=== PATIENT | male | born 1995 | race Hispanic/Latino ===

== ENCOUNTER 2019-11-09 10:25 | Observation (INO) | payer OTHER ==
[~2019-11-09] VITALS: Ht 177.8 cm; Wt 95.3 kg
--- NOTE | 2019-11-09 10:25 | NUR ---
PATIENT TO ROOM 16 BY EMS PATIENT HAD SUDDEN ONSET OF DIZZINESS AND LEFT SIDED BLINDNESS. WHEN PATIENT ARRIVED IN ER PATIENT HAD GROSS MOTOR TOTAL BODY INTERMITTENT TWITCHING. PATIENT CONFUSED STSTING TODAY WAS TUESDAY AFTER REDIRECTION AND ASKING 3 DIFFERENT TIMES. PATIENT UNABLE TO FOLLOW COMMANDS CORRECTLY. 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 PATIENT HAS NO ATAXIA BUT IS SLOW TO FOLLOW COMMANDS. MD NOTIFIED OF PATIENTS CONDITION AND STROKE ALERT CALLED. PATIENT TAKEN TO RADIOLOGY FOR CT SCAN
--- NOTE | 2019-11-09 10:49 | NUR ---
PATIENT ON CAMERA WITH DR GARCIA ALL SYMPTOMS FROM PREVIOUS NOTE RESOLVED EXCEPT FOR GROSS MOTOR MUSCLE TWITCHING. NO TPS RECOMMENDED BECAUSE OF RAPID IMPROVEMENT OF SYMPTOMS. MD NOTIFIED OF FINDINGS AND NEUROLOGIST EXAM
[2019-11-09 10:54] LABS: GFR > 60 ML/MIN (>=60 (CALC)); GFR FOR AFR.AMER. > 60 ML/MIN (>=60 (CALC))
[2019-11-09 10:56] LABS: HEMATOCRIT 44.8 % (39.0-50.0); HEMOGLOBIN 15.4 g/dl (14.0-18.0); IMMATURE GRANULOCYTES 0.3 % (0.0-5.0); MEAN CELL VOLUME 87.2 fL CALC (80.0-100.0); MEAN CORPUSCULAR HGB CONC 34.4 g/dL CAL (32.0-36.0); NEUT# 4.05 thou/uL (1.82-7.42); RED BLOOD COUNT 5.14 mill/uL (4.70-6.10); RED CELL DISTRI WIDTH 11.5 % (11.5-15.5)
[2019-11-09 11:08] LABS: ALKALINE PHOSPHATASE 108 u/l (38-126); ANION GAP 17 (6-22 (CALC)); BILIRUBIN, TOTAL 0.9 mg/dL (0.0-1.4); BUN 15 mg/dL (9-20); BUN/CREATININE RATIO 14 (12-20 (CALC)); CARBON DIOXIDE 22 mmol/l (22-30); CHLORIDE 103 mmol/l (95-108); CREATININE 1.1 mg/dL (0.7-1.3); ETHYL ALCOHOL 0 mg/dl (0-30); GFR > 60 ML/MIN (>=60 (CALC)); GFR FOR AFR.AMER. > 60 ML/MIN (>=60 (CALC)); LIPASE 78 u/l (23-300); POTASSIUM 4.1 mmol/l (3.5-5.1); SGOT/AST 64 u/l (17-59); SODIUM 137 mmol/l (137-146); TOTAL PROTEIN 7.9 g/dL (6.3-8.2)
[2019-11-09 11:14] LABS: ACT PARTIAL THROMBO TIME 26.8 SECONDS (20.0-32.5); PROTHROMBIN TIME 9.9 SECONDS (9.0-12.5)
--- NOTE | 2019-11-09 11:49 | NUR ---
PATEINT RESTING AWAITING RADIOLOGY RESULTS PATIENT HAS NO NEURO DEFICITS AT THIS TIME
[2019-11-09 12:52] LABS: URINE BILIRUBIN - DIPSTICK NEGATIVE (NEGATIVE); URINE BLOOD DIPSTICK NEGATIVE (NEGATIVE); URINE COLOR YELLOW; URINE GLUCOSE - DIPSTICK NEGATIVE (NEGATIVE); URINE KETONE NEGATIVE (NEGATIVE); URINE LEUK ESTERASE NEGATIVE (NEGATIVE); URINE NITRITE - DIPSTICK NEGATIVE (Negative); URINE PH 6.5 (4.5-8.0); URINE PROTEIN - DIPSTICK NEGATIVE (NEG-TRACE); URINE SPECIFIC GRAVITY <=1.005; URINE UROBILINOGEN - DIPSTICK 0.2 E.U./dL (0.2)
[2019-11-09] MEDS ORDERED: VENTOLIN H108 MCG/AC IN (12:56)
--- NOTE | 2019-11-09 13:10 | NUR ---
NO O2 REQUIRED PER MD
--- NOTE | 2019-11-09 14:10 | NUR ---
PATIENT RESTING AWAITNG ROOM ASSIGNMENT PATIENT DENIES ANY PAIN OR DISCOMFORT AT THIS TIME. PATIENTHAS NO FOCAL NEURO DEFICITS AT THIS TIME
--- NOTE | 2019-11-09 15:13 | NUR ---
PATIENT RESTING AWAITNG ROOM ASSIGNMENT PATIENT HAS NO FOCAL NEURO DEFICITS AT THIS TIME WITH DENIES ANY PAIN OR DISCOMFORT AT THIS TIME
--- NOTE | 2019-11-09 15:26 | NUR ---
REPORT TO MELISA ON MED SURG
--- NOTE | 2019-11-09 15:35 | NUR ---
PT ARRIVED TO UNIT VIA WHEELCHAIR WITH ER STAFF; ALERT AND ORIENTED AND IN STABLE CONDITION. AMBULATED AROUND ROOM INDEPENDENTLY WITH STEADY GAIT. DENIES PAIN, DIZZINESS, NAUSEA, SOB, AND VISION PROBLEMS. RESPIRATIONS EVEN AND UNLABORED ON ROOM AIR. NIH 0. ASSESSMENT WNL. IV SITE HEALTHY AND FLUSHES. VSS. ORIENTED TO ROOM AND CALL LIGHT SYSTEM. PLAN OF CARE DISCUSSED. PT ENCOURAGED TO VERBALIZE CONCERNS. STATES UNDERSTANDING. SAFETY MEASURES IN PLACE. CALL LIGHT WITHIN REACH.
--- NOTE | 2019-11-09 16:00 | NUR ---
SIGNIFICANT OTHER AT BEDSIDE; BROUGHT [place] FOR HER DINNER. PT INDEPENDENT IN ROOM; REFUSES GOWN.
[2019-11-09 16:32] VITALS: BP 125/82
[2019-11-09 19:00] VITALS: BP 128/82
--- NOTE | 2019-11-09 19:00 | NUR ---
REPORT RECEIVED FROM Fernando GARCIA RN, CARE OF PT ASSUMED AT THIS TIME.
--- NOTE | 2019-11-09 20:00 | NUR ---
ADMISSION AND PHYSICAL ASSESMENT COMPLETE. PT CURRENTLY DENIES PAIN OR DISCOMFORT. PT DENIES ANY NEEDS AT THIS TIME. PLAN OF CARE REVIEWED, PT DENIES QUESTIONS, VERBALIZES UNDERSTANDING. ITEMS WITHIN REACH, BED LOCKED IN LOW POSITION W/ BEDRAILS UP X2. CALL [place] WITHIN REACH, AGREES TO CALL PRN.
[2019-11-10] VITALS: BP 114/73
--- NOTE | 2019-11-10 | NUR ---
PT REMOVES TELEMETRY, STATES HE WOULD LIKE TO REFUSE CARDIAC MONITORING BECAUSE "IM NOT HERE FOR MY HEART". TELE D/C'd.
--- NOTE | 2019-11-10 02:51 | NUR ---
PT APPEARS TO BE SLEEPING COMFORTABLY, NO APPARENT DISTRESS, RESPIRATIONS REGULAR AND UNLABORED. ITEMS REMAIN WITHIN REACH, BED REMAINS LOCKED IN LOW POSITION W/ BEDRAILS UP X2. CALL [place] REMAINS WITHIN REACH.
[2019-11-10 04:00] VITALS: BP 100/70
[2019-11-10 07:09] VITALS: BP 114/78
--- NOTE | 2019-11-10 08:40 | NUR ---
PT IS SITTING IN THE COUCH AND DRESS UP WITH HIS CLOTHS. PT STATED HE IS READY TO GO HOME. TOLD PT WE MUST WAIT FOR MD. HE VERBALIZED UNDERSTANDING. ASSESSMENT DONE. PT IS A&O X3. PT DENIES ANY PAIN. NO S/S OF DISTRESS NOTED. RESPS EVEN AND UNLABORED. PT DENIES ANY OTHER NEEDS AT THIS TIME. CALL LIGHT IN REACH.
--- NOTE | 2019-11-10 09:21 | NUR ---
Discharge instructions given. Patient verbalizes understanding of same. Discharged in stable condition via Ambulatory to Home with SELF. PT REFUSED WHEELCHAIR. All belongings sent with pt.
[2019-11-10 09:25] LABS: CHOLESTEROL HDL RATIO 8.5 (<4.4 (CALC))
== END 2019-11-10 09:21 | disposition home or self-care (01) | DRG 69 ==
LOC: ED 10:25 → ED-I 12:21 → ED 12:21 → ED-I 13:10 → ED 13:26 → MS2 13:27
PROVIDERS: Family Medicine; Nurse Practitioner Family; ADMIT Internal Medicine; ATTEND Internal Medicine
DX: G45.9 Transient cerebral ischemic attack, unspecified (principal); Q21.1 Atrial septal defect; J45.909 Unspecified asthma, uncomplicated; F41.9 Anxiety disorder, unspecified; Z86.73 Personal history of transient ischemic attack (TIA), and cerebral infarction without residual deficits; Z20.828 Contact with and (suspected) exposure to other viral communicable diseases
CPT/HCPCS: A9579; G0378; Q9967